=== PATIENT | female | born 1985 | race Caucasian/White ===

== ENCOUNTER 2017-11-04 05:56 | Day surgery (SDC) | END 2017-11-04 12:15 | disposition home or self-care (01) ==

== ENCOUNTER 2018-10-20 05:55 | Day surgery (SDC) | payer OTHER ==
[2018-10-20] VITALS (14 sets, daily range): BP systolic 119–139; BP diastolic 68–79; PULSE 53–88; RESP 15–26; Ht 162.6 cm; Wt 76.0 kg
[~2018-10-20] VITALS: Ht 162.6 cm; Wt 76.0 kg
[~2018-10-20 05:55] MED LIST: CALC-600 PO; IRON18TA PO; PREN1TAB9 PO
[2018-10-20] MEDS ORDERED: POLYMYXIN/BACITRACIN 1L IRRIG ONE (06:54)
[2018-10-20] MEDS ORDERED: BUPIVACAINE 0.5% (SDV) 30 ML INJ ONE (06:54)
--- NOTE | 2018-10-20 07:24 | PREAC ---
Date/Time of Note Date/Time of Note DATE: 10/20/18 TIME: 07:22 Anesthesia Eval and Record Evaluation Time Pre-Procedure Interview DATE: 10/20/18 TIME: 07:22 Age 32 Sex female NPO: 8 hrs Preoperative diagnosis L Bunion Planned procedure L Bunionectomy Past Medical History Past Medical History: None Surgery & Anesthesia Issues No known issue Meds Anticoagulation: No Beta Ines within 24 hr: No Reason Beta Ines not given: Pt. not on B-Ines Discontinued Reported Medications Calcium (Calcium) 500 Mg Tablet, 500 MG PO DAILY 10/22/12 Iron (Iron) 18 Mg Tablet, 18 MG PO DAILY 10/22/12 Vits W-Ca,Fe,Fa(<1MG) ( #2) 1 Tab Tablet, 1 TAB PO DAILY 10/22/12 Meds reviewed: Yes Allergies Coded Allergies: No Known Drug Allergies (Verified Allergy, Unknown, 10/20/18) Allergies Reviewed: Yes Labs/Studies Labs Reviewed: Reviewed by anesthesiologist test: Negative Pre-procedure Exam Last vitals Vital Signs Date Temp Pulse Resp B/P (MAP) Pulse Ox O2 O2 Flow FiO2 Time Delivery Rate 10/20/18 98.3 62 18 119/71 100 Room Air 07:05 (87) Airway: Adequate mouth opening, Adequate thyromental dist Mallampati: Mallampati II Teeth: Normal Lung: Normal Heart: Normal ASA Physical Status ASA physical status: 1 Emergency: None Planned Anesthetic General/MAC: Mask, ETT, LMA Pre-operative Attestations Prior to commencing anesthesia and surgery, the patient was re-evaluated, there was verification of: *The patient's identity *The results of appropriate recent lab work and preoperative vital signs *The above evaluation not changing prior to induction *Anesthetic plan, risk benefits, alternative and complications discussed with patient/family; questions answered; patient/family understands, accepts and wishes to proceed. PAULA BAILEY Oct 20, 2018 07:24
[2018-10-20] MEDS ORDERED: ONDANSETRON 4 MG INJ IV PRN (07:30)
[2018-10-20] MEDS ORDERED: HYDROmorphONE 1 MG/5 ML IV SYRINGE IV PRN ×2 (07:30)
[2018-10-20] MEDS ORDERED: DIPHENHYDRAMINE 50 MG INJ IV PRN (07:30)
[2018-10-20] MEDS ORDERED: METOCLOPRAMIDE 10 MG INJ IV PRN (07:30)
[2018-10-20] MEDS ORDERED: FENTAnyl 50 MCG/ML VIAL IV PRN ×2 (07:30)
[2018-10-20] MEDS ORDERED: ALBUTEROL 0.083% (NEB) 2.5 MG/3 ML AMP HHN PRN (07:30)
[2018-10-20] MEDS ORDERED: MEPERIDINE 25 MG INJ IV PRN (07:30)
--- NOTE | 2018-10-20 07:30 | HPN ---
Date/Time of Note Date/Time of Note DATE: 10/20/18 TIME: 07:30 Interval H&P Admission Note Pt. seen H&P reviewed: No system changes DIEGO BAR DPM Oct 20, 2018 07:30
[2018-10-20] MEDS ORDERED: FENTAnyl 50 MCG/ML VIAL ONE (07:36)
[2018-10-20] MEDS ORDERED: MIDAZOLAM 1 MG/ML 2 ML INJ ONE (07:36)
[2018-10-20] MEDS ORDERED: ROPIVACAINE 0.5 % 30 ML VIAL ONE (07:36)
[2018-10-20] MEDS ORDERED: NEOSTIGMINE 3 MG/3 ML SYRINGE ONE (08:13)
[2018-10-20] MEDS ORDERED: ROCURONIUM 50 MG INJ ONE (08:13)
[2018-10-20] MEDS ORDERED: LIDOCAINE 100 MG SYRINGE ONE (08:13)
[2018-10-20] MEDS ORDERED: CEFAZOLIN 1 GM INJ ONE (08:13)
[2018-10-20] MEDS ORDERED: GLYCOPYRROLATE 1 MG INJ ONE (08:13)
[2018-10-20] MEDS ORDERED: SUCCINYLCHOLINE CHLORIDE 100 MG/5 ML SYG IV ONE (08:13)
[2018-10-20] MEDS ORDERED: PROPOFOL 20 ML ONE (08:13)
[2018-10-20] MEDS ORDERED: LABETALOL HCL 20MG INJ ONE (08:14)
[2018-10-20] MEDS ORDERED: SUGAMMADEX SODIUM 200 MG/2 ML VIAL IV ONE (08:45)
[2018-10-20] MEDS: HYDROmorphONE 1 MG/5 ML IV SYRINGE IV PRN ×2 (09:02→09:21)
--- NOTE | 2018-10-20 09:04 | SIPON ---
Date/Time of Note Date/Time of Note DATE: 10/20/18 TIME: 09:02 Operative Report Preoperative Diagnosis Left foot Miri's bunion deformity Left foot pain Postoperative Diagnosis Left foot Miri's bunion deformity Left foot pain Operation/Procedure Performed Left foot Miri's bunionectomy Surgeon see signature line customer care assistant None Anesthesia: general Estimated blood loss: minimal Transfusion Required none Specimen Bone from the left foot Grafts/Implants none Complications none DIEGO BAR DPM Oct 20, 2018 09:04
--- NOTE | 2018-10-20 10:10 | OPR ---
DATE OF OPERATION: 10/20/2018 PREOPERATIVE DIAGNOSES: 1. Left foot painful tailor's bunion deformity. 2. Left foot pain. POSTOPERATIVE DIAGNOSES: 1. Left foot painful tailor's bunion deformity. 2. Left foot pain. PROCEDURE PERFORMED: Tailor bunionectomy, left foot. SURGEON: Arturo Root DPM CHIEF TRANSFER AND PUMPHOUSE OPERATOR: None. ANESTHESIA: General. ESTIMATED BLOOD LOSS: Less than 5 mL. HEMOSTASIS: Pneumatic ankle tourniquet. INDICATIONS FOR SURGERY: This is a pleasant 32-year-old female patient who has been suffering with l eft foot pain secondary to deformity in the left 5th metatarsophalangeal joint. She is status post b unionectomy of the left foot. There is pain relief; however, she started to have pain in the fifth m etatarsophalangeal joint with most of her shoes and activities. The patient was evaluated fully, and was found to have a moderate to severe 5th metatarsophalangeal joint tailor's bunion requiring surgi ann management. Risks and complications were discussed in great detail with the patient including bu t not limited to postoperative infection, postop pain, chronic disability, gait disturbance, malunion , nonunion, delayed union of bone, wound dehiscence, failure of hardware, failure of surgery to corre ct the problem, need for additional surgical procedures, deep venous thrombosis, limb loss and loss o f life. Patient understands risks, complications, and agrees to procedure. Informed consent was obt ained, signed and placed in the chart. No guarantee or warranty was given or implied as to the outco me of the procedure, either in verbal or written form. PROCEDURE IN DETAIL: The patient was seen in the preoperative area. Proposed surgery was discussed with great detail. The patient was given opportunity to ask questions and all questions were answere d. The patient acknowledged understanding of discussion and agrees to procedure. The patient was th en taken to the operating room, was placed on the operating table in the supine position. The patien t was placed under general anesthesia. Bony prominences were padded properly. A pneumatic ankle amparo rniquet was applied to the left ankle. The left foot was scrubbed, prepped and draped in usual asept ic manner. Attention was directed to the left foot. An Esmarch bandage was utilized to exsanguinate the left foot and the pneumatic ankle tourniquet was inflated to 250 mmHg pressure. Attention was d irected to the 5th metatarsophalangeal joint. A linear 4 cm incision was made over the dorsal latera l aspect of the joint using a #15 blade. Bleeders were cauterized as necessary. Dissection was deep ened through subcutaneous layer to the joint capsule with care being taken to identify neurovascular structures. Bleeders were cauterized as necessary. The joint capsule was identified and a linear ca psulotomy was performed using a #15 blade. The joint capsule was dissected off of the head of the 5t h metatarsal, exposing the 5th MPJ. A power saw was used to cut the lateral bony prominence. Next, the head of the 5th metatarsal was cut with a Chevron type cut of the distal over the point apex dist ally and then dorsal and proximal plantarly. The capital fragment was translated medially to the olya ired position and fixated temporarily using a guidewire for the two 4.0 cannulated headless screw sys tem, a 12 mm cannulated screw was inserted for permanent fixation. Next, the K-wire was removed and using a power saw, the lateral bony shelf was cut and passed to the back field. The wound was flushe d with copious amounts of sterile normal saline. A rasp was used to smooth out the rough edges. The deformity was reduced at this time. Next, the joint capsule was closed using 3-0 Vicryl suture. Th e subcutaneous layer was closed using 5-0 Vicryl suture and the skin was closed using 5-0 Monocryl marroquin bcuticular stitch pattern. Steri-Strips were applied. The patient had received a popliteal block pr ior to the start of the case by the anesthesiologist and no further anesthetic was necessary. Steril e dressing was applied to the left foot. The ankle tourniquet was deflated at this time and prompt h yperemic response was noted to digits of the left foot. Patient tolerated procedure and anesthesia w ell. She was transferred to the recovery room with vital signs stable and vascular status intact to the left lower extremity. The patient will be sent home after postoperative monitoring. Postoperati ve orders have been written. Partial weightbearing left foot with postop shoe and crutches to be don e. Patient will be followed in my office in 1 week. Dictated By: ARTURO STEPHENS/PAWEL Conf#: [id number] DID#: [id number]
--- NOTE | 2018-10-20 12:08 | PAC ---
Date/Time of Note Date/Time of Note DATE: 10/20/18 TIME: 12:08 Post-Anesthesia Notes Post-Anesthesia Note Last documented vital signs Vital Signs Date Temp Pulse Resp B/P (MAP) Pulse Ox O2 O2 Flow FiO2 Time Delivery Rate 10/20/18 54 17 125/76 98 Room Air 09:40 (92) 10/20/18 98.0 08:50 Activity: WNL Respiratory function: WNL Cardiovascular function: WNL Mental status: Baseline Pain reasonably controlled: Yes Hydration appropriate: Yes Nausea/Vomiting absent: Yes PAULA BAILEY Oct 20, 2018 12:08
== END 2018-10-20 13:38 | disposition home or self-care (01) ==
LOC: SDS 05:55
PROVIDERS: ATTEND Podiatrist Foot & Ankle Surgery
DX: M21.622 Bunionette of left foot (principal)
CPT/HCPCS: 28110; 73630; 88305; 88311; J0690; J1170; J2001; J2250; J2710; J2795; J3010; L3260; Z7512; Z7610